=== PATIENT | female | born 1975 | race Caucasian/White ===

== ENCOUNTER 2017-04-01 06:55 | Emergency (ER) | payer BC, OTHER ==
[2017-04-01 07:20] VITALS: BP 114/76; PULSE 61; TEMP 97.9; BMI 26.3
--- NOTE | 2017-04-01 07:25 | PDOC ---
*Physical Exam - Vital Signs Last Vital Signs Temp Pulse Resp BP Pulse Ox 97.9 F 61 16 114/76 100 04/01/17 07:13 04/01/17 07:13 04/01/17 07:13 04/01/17 07:13 04/01/17 07:13 - Physical Exam Comments: 04/01/17 07:25 Pt seen by the Advanced Practice Provider under my direct supervision Pt interviewed and examined Ancillary studies reviewed I agree with plan as outlined by the Advanced Practice Provider *DC/Admit/Observation/Transfer Diagnosis at time of Disposition: Head ache, Sinus congestion - Discharge Dispostion Disposition: HOME Condition at time of disposition: Improved - Prescriptions Prescriptions: Acetaminophen/Caffeine/Butalb [Fioricet -] 1 tab PO TID PRN #12 tablet MDD 3 PRN Reason: Headache Cetirizine HCl [Zyrtec -] 10 mg PO DAILY #7 tablet - Referrals Referrals: STAFF,NOT ON [Primary Care Provider] - - Patient Instructions Printed Discharge Instructions: DI for Sinus Headache Additional Instructions: Your head CT does not show any abnormal findings. I do recommend that you take fioricet that for the headache along with Zyrtec to help with the pressure. Please follow up with your PCP and/or return to ED if symptoms worsen.
[2017-04-01] MEDS ORDERED: KETOROLAC TROMETHAMINE 60 MG/2 ML VIAL IM ONE (07:57)
[2017-04-01 08:37] LABS: URINE APPEARANCE CLEAR; URINE BILIRUBIN NEGATIVE (NEGATIVE); URINE BLOOD NEGATIVE (NEGATIVE); URINE COLOR YELLOW; URINE GLUCOSE (UA) NEGATIVE (NEGATIVE); URINE KETONE NEGATIVE (NEGATIVE); URINE LEUK ESTERASE NEGATIVE (NEGATIVE); URINE NITRITE NEGATIVE (NEGATIVE); URINE PROTEIN NEGATIVE (NEGATIVE); URINE UROBILINOGEN NEGATIVE E.U./dl (0.2-1.0)
[2017-04-01] MEDS ORDERED: KETOROLAC TROMETHAMINE 60 MG/2 ML VIAL ONE (08:38)
--- NOTE | 2017-04-01 08:49 | PDOC ---
History of Present Illness - General Chief Complaint: Cold Symptoms Stated Complaint: PAIN IN BACK OF NECK Time Seen by Provider: 04/01/17 07:23 History Source: Patient Exam Limitations: No Limitations - History of Present Illness Initial Comments: 04/01/17 08:50 41 yr old female presents to the ED with c/o sinus pressure, nasal congestion and generalized headache. Patient states has taken Excedrin sinus with minimal improvement and has an appointment with her doctor later this week but secondary to her symptoms she was concerned that this may be more then just a sinus infection since she states had been treated for viral meningitis 5 years ago and states had similar symptoms. Patient denies neck rigidity, fever, chills , pain visual changes, dizziness. Patient denies decreased hearing, recent dental work, difficulty swallowing, sore throat, or chest pain. Patient denies recent travel, recent illness or cough. Timing/Duration: reports: other Severity: reports: moderate Possible Cause: Yes: occasional episodes Associated Symptoms: reports: nasal congestion, sinus infection Aspirin Received prior to arrival: No: no aspirin today Past History - Past Medical History Allergies/Adverse Reactions: Allergies Allergy/AdvReac Type Severity Reaction Status Date / Time No Known Allergies Allergy Verified 04/01/17 07:42 Home Medications: Ambulatory Orders NK [No Known Home Medication] 04/01/17 Other medical history: denies - Surgical History GI Surgery: Yes (T-tuck) Neurologic Surgery: Yes (Cyst removal 12/18) - Psycho/Social/Smoking Cessation Hx Suicidal Ideation: No Smoking Status: No Smoking History: Never smoked Number of Cigarettes Smoked Daily: 0 Information on smoking cessation initiated: No Hx Alcohol Use: No Drug/Substance Use Hx: No Substance Use Type: None Hx Substance Use Treatment: No Patient Lives Alone: No Lives with/in: spouse/SO Review of Systems - Review of Systems Able to Perform ROS?: Yes Constitutional: No: Symptoms Reported HEENTM: Yes: Ear Pain (mild bilateral), Nose Congestion. No: Hearing Loss, Throat Pain Respiratory: No: Symptoms reported Cardiac (ROS): No: Symptoms Reported ABD/GI: No: Symptoms Reported : No: Symptoms Reported Musculoskeletal: No: Symptoms Reported Integumentary: No: Symptoms Reported Neurological: Yes: Headache. No: Numbness, Weakness, Dizziness *Physical Exam - Vital Signs Last Vital Signs Temp Pulse Resp BP Pulse Ox 97.9 F 61 16 114/76 100 04/01/17 07:13 04/01/17 07:13 04/01/17 07:13 04/01/17 07:13 04/01/17 07:13 - Physical Exam General Appearance: Yes: Nourished, Appropriately Dressed. No: Apparent Distress HEENT: positive: EOMI, DARWIN, TMs Normal, Pharynx Normal. negative: Pale Conjunctivae Neck: positive: Supple. negative: Tender, Decreased range of motion, Rigidity, Tender lateral Respiratory/Chest: positive: Lungs Clear, Normal Breath Sounds. negative: Respiratory Distress, Accessory Muscle Use Cardiovascular: positive: Regular Rhythm, Regular Rate. negative: Murmur Gastrointestinal/Abdominal: positive: Soft. negative: Tenderness Integumentary: positive: Normal Color, Warm, Moist Neurologic: positive: Motor Strength 5/5 ED Treatment Course - RADIOLOGY Radiology Studies Ordered: Category Date Time Status HEAD CT WITHOUT CONTRAST [CT] Stat CT Scan 04/01/17 07:57 Ordered Medical Decision Making - Medical Decision Making 04/01/17 08:38 Patient complaints of nasal congestion, sinus pressure, and generalized headache worsened in the occipital region. Patient on exam had no acute findings. Patient had no frontal or maxillary sinus tenderness. Patient was ordered for Toradol IM and a head CT since she states has never had a headache to this degree in the past. 04/01/17 09:38 Patient states feeling better after receiving the medication. Patient has no acute findings on CT including sinusitis. Patient will be discharged home to follow-up with her PCP. Patient also be given a prescription for Fioricet and Zyrtec. *DC/Admit/Observation/Transfer Diagnosis at time of Disposition: Congestion of paranasal sinus Headache Qualifiers: Headache type: unspecified Headache chronicity pattern: acute headache Intractability: not intractable Qualified Code(s): R51 - Headache - Discharge Dispostion Disposition: HOME Condition at time of disposition: Improved - Referrals Referrals: STAFF,NOT ON [Primary Care Provider] - - Patient Instructions Printed Discharge Instructions: DI for Sinus Headache Additional Instructions: Your head CT does not show any abnormal findings. I do recommend that you take fioricet that for the headache along with Zyrtec to help with the pressure. Please follow up with your PCP and/or return to ED if symptoms worsen.
== END 2017-04-01 10:41 | disposition home or self-care (01) ==
LOC: JER 06:55
PROC: 3E0233Z Introduction of Anti-inflammatory into Muscle, Percutaneous Approach (ICD-10-PCS; principal; 2017-04-01)
DX: J34.89 Other specified disorders of nose and nasal sinuses (principal); R51 Headache
CPT/HCPCS: 70450-TC; 81003; 84703; 99281-25

== ENCOUNTER 2019-04-09 09:42 | Emergency (ER) | payer BC, OTHER | END 2019-04-09 10:41 | disposition home or self-care (01) | LOC: JERFT 09:42 ==